=== PATIENT | female | born 1990 | race Caucasian/White ===

== ENCOUNTER → 2020-10-10 | Outpatient (CLI) | payer OTHER, SELFPAY ==
[2020-10-21 15:44] LABS: HPV Reflexed? NOT INDICATED
== END | disposition home or self-care (01) ==
LOC: LABSPEC 15:15
PROVIDERS: Visit Provider Student in an Organized Health Care Education/Training Program
DX: Z12.4 Encounter for screening for malignant neoplasm of cervix (principal)
CPT/HCPCS: 88175; G0145

== ENCOUNTER → 2021-11-30 | Outpatient (CLI) | payer OTHER, SELFPAY ==
[2021-12-04 13:20] LABS: HPV Reflexed? NOT INDICATED
== END | disposition home or self-care (01) ==
LOC: LABSPEC 12:21
PROVIDERS: Visit Provider Student in an Organized Health Care Education/Training Program
DX: Z12.4 Encounter for screening for malignant neoplasm of cervix (principal)
CPT/HCPCS: 88175; G0145

== ENCOUNTER → 2022-02-22 | Outpatient (CLI) | payer OTHER, SELFPAY ==
--- NOTE | 2022-02-22 11:55 | BI_ITS ---
MAMMOGRAPHY - BILATERAL SCREENING REASON FOR EXAM: Female, 32 years old. Routine annual screening examination. PERTINENT HISTORY: Aunt with breast cancer. TECHNIQUE: Digital bilateral breast yanick (3D mammographic acquisition) in the CC and MLO projections. 2-D mediolateral oblique (MLO) and craniocaudad (CC) views of both breasts were obtained. CAD: Full Field Digital Mammography with Computer Added Detection was performed. COMPARISON: None. Baseline examination. FINDINGS: Breast Composition: The breasts are extremely dense, which lowers the sensitivity of mammography. There are no dominant masses or suspicious calcifications. No other significant abnormalities are identified. BI/SCRN MAMM (CAD)W/YANICK BILAT IMPRESSION: Negative screening mammogram. Yearly followup mammogram recommended. (A) ASSESSMENT CATEGORY: BIRADS Category 1: Negative. A letter regarding these results will be sent to the patient by the facility within 30 days. Approximately 10% of breast cancers are not detected by mammography. A normal mammogram should not delay biopsy of a clinically suspicious abnormality. [id number] Electronically Signed: Albert Stone MD at 13:06 EST ,
== END | disposition home or self-care (01) ==
LOC: OPBI 11:52
PROVIDERS: PCP Nurse Practitioner Family; Visit Provider Student in an Organized Health Care Education/Training Program
DX: Z12.31 Encounter for screening mammogram for malignant neoplasm of breast (principal); Z80.3 Family history of malignant neoplasm of breast
CPT/HCPCS: 77063; 77067

== ENCOUNTER → 2023-07-05 | Outpatient (CLI) | payer OTHER, SELFPAY ==
[2023-07-07 08:12] LABS: Chlamydia By Nucleic Acid AMP Negative (Negative); Gonococcus By Nucleic Acid AMP Negative (Negative)
== END | disposition home or self-care (01) ==
LOC: LABSPEC 12:03
PROVIDERS: PCP Nurse Practitioner Family; Referring Provider Obstetrics & Gynecology; Visit Provider Obstetrics & Gynecology
DX: Z34.90 Encounter for supervision of normal pregnancy, unspecified, unspecified trimester (principal); Z3A.00 Weeks of gestation of pregnancy not specified
CPT/HCPCS: 87086; 87491; 87591

== ENCOUNTER → 2023-07-19 | Outpatient (CLI) | payer OTHER, SELFPAY ==
[2023-07-19 14:28] LABS: Absolute Lymphocyte Count 2.51 X10^3/uL (0.83-4.51); Absolute Neutrophil Count 4.8 X10^3/uL (2.0-7.7); Basophil# 0.05 X10^3/uL; Basophil% 0.6 % (0-1); Eosinophil# 0.31 X10^3/uL; Eosinophils% 3.7 % (0-5); Hematocrit 39.5 % (37-47); Hemoglobin 13.4 g/dL (12.0-15.0); Lymphocyte # 2.51 X10^3/ul (0.83-4.51); Lymphocyte % 30.1 % (19-41); Mean Corp Hgb Conc 33.9 g/dL (32-36); Mean Corpuscular Hgb 30.1 pg (27.0-32.0); Mean Corpuscular Volume 88.8 fL (81-99); Mean Platelet Vol. 12.2 fl (6.2-12.0); Monocyte# 0.69 X10^3/uL; Monocyte% 8.3 % (0-10); NRBC Flagged by Analyzer 0 % (0-5); Neutrophil # 4.75 X10^3/uL (2.7-7.7); Neutrophil % 57.1 % (47-70); Platelet Count 209 K/mm3 (150-450); RBC Distribution Width CV 12.5 % (11.6-14.6); RBC Distribution Width SD 40.9 fl (35.1-43.9); Red Blood Count 4.45 M/mm3 (4.2-5.4); White Blood Count 8.3 K/mm3 (4.4-11.0)
[2023-07-19 15:44] LABS: HIV - WCH Non-Reactive (Nonreactive); Hepatitis B Surface Antigen Non-Reactive (Nonreactive); Hepatitis C Antibody Non-Reactive (Nonreactive); Rubella IgG Reactive (Nonreactive); Syphilis Antibodies Non-reactive
== END | disposition home or self-care (01) ==
LOC: PAVLAB 14:00
PROVIDERS: PCP Nurse Practitioner Family; Referring Provider Obstetrics & Gynecology; Visit Provider Obstetrics & Gynecology
DX: Z34.81 Encounter for supervision of other normal pregnancy, first trimester (principal); Z3A.00 Weeks of gestation of pregnancy not specified
CPT/HCPCS: 36415; 85025; 86703; 86762; 86780; 86803; 86850; 86900; 86901; 87340

== ENCOUNTER → 2023-11-23 | Outpatient (CLI) | payer OTHER, SELFPAY ==
[2023-11-23 11:06] LABS: Absolute Lymphocyte Count 1.78 X10^3/uL (0.83-4.51); Absolute Neutrophil Count 8.8 X10^3/uL (2.0-7.7); Basophil# 0.03 X10^3/uL; Basophil% 0.3 % (0-1); Eosinophil# 0.29 X10^3/uL; Eosinophils% 2.5 % (0-5); Hematocrit 37.3 % (37-47); Hemoglobin 12.6 g/dL (12.0-15.0); Lymphocyte # 1.78 X10^3/ul (0.83-4.51); Lymphocyte % 15.2 % (19-41); Mean Corp Hgb Conc 33.8 g/dL (32-36); Mean Corpuscular Volume 91.9 fL (81-99); Mean Platelet Vol. 12.4 fl (6.2-12.0); Monocyte# 0.75 X10^3/uL; Monocyte% 6.4 % (0-10); NRBC Flagged by Analyzer 0 % (0-5); Neutrophil # 8.75 X10^3/uL (2.7-7.7); Neutrophil % 74.7 % (47-70); Platelet Count 178 K/mm3 (150-450); RBC Distribution Width CV 13.2 % (11.6-14.6); RBC Distribution Width SD 44.5 fl (35.1-43.9); Red Blood Count 4.06 M/mm3 (4.2-5.4); White Blood Count 11.7 K/mm3 (4.4-11.0)
[2023-11-23 11:09] LABS: Glucose Challenge Gest 1H 50g 104 mg/dL (70-140)
[2023-11-23 15:52] LABS: HIV - WCH Non-Reactive (Nonreactive); Syphilis Antibodies Non-reactive
== END | disposition home or self-care (01) ==
PROVIDERS: PCP Nurse Practitioner Family; Referring Provider Obstetrics & Gynecology; Visit Provider Obstetrics & Gynecology
DX: Z34.00 Encounter for supervision of normal first pregnancy, unspecified trimester (principal); Z13.1 Encounter for screening for diabetes mellitus
CPT/HCPCS: 36415; 82950; 85025; 86703; 86780

== ENCOUNTER → 2024-01-02 | Outpatient (CLI) | payer OTHER, SELFPAY ==
--- NOTE | 2024-01-02 15:29 | US_ITS ---
STUDY: SECOND AND THIRD TRIMESTER OBSTETRICAL ULTRASOUND REASON FOR EXAM: Female, 33 years old large for gestational age TECHNIQUE: Transabdominal PRIOR ULTRASOUND: 07/05/2023 FINDINGS: There is a single intrauterine fetus. The fetus is in a cephalic presentation. There is demonstrated cardiac activity with a heart rate of 137 bpm. There is a normal amniotic fluid volume. The largest amniotic fluid pocket measures 6.7 cm. The amniotic fluid index (HECTOR) is 14.8 cm. The placenta is posterior and not low-lying. There are Grade 1 placental changes. The cervix measures 4.1 cm in length. The bilateral adnexal regions are normal. BPD: 9 cm = 36 weeks, 3 day(s) HC: 32.3 cm = 36 weeks, 4 day(s) AC: 29.2 cm = 33 weeks, 2 day(s) FL: 6.4 cm = 32 weeks, 6 day(s) EGA by ultrasound: 34 weeks 5 day(s) FELICIANO by ultrasound: 02/08/2024 Estimated weight: 2263 grams Weight percentile: 32 % US/OB Limited With Biometrics IMPRESSION: Living intrauterine with estimated gestational age of 34 weeks and 5 days. EFW is 2263g which is in the 32nd percentile. Normal HECTOR. No obvious anomalies. Electronically Signed: Jayson Chang MD at 23:47 EDT ,
== END | disposition home or self-care (01) ==
LOC: US 15:25
PROVIDERS: Referring Provider Obstetrics & Gynecology; Visit Provider Obstetrics & Gynecology
DX: O36.60X0 Maternal care for excessive fetal growth, unspecified trimester, not applicable or unspecified (principal)
CPT/HCPCS: 76816

== ENCOUNTER → 2024-01-20 | Outpatient (CLI) | payer OTHER, SELFPAY | END | disposition home or self-care (01) | LOC: LABSPEC 13:20 | PROVIDERS: Referring Provider Advanced Practice Midwife; Visit Provider Advanced Practice Midwife | DX: Z34.00 Encounter for supervision of normal first pregnancy, unspecified trimester (principal); Z3A.00 Weeks of gestation of pregnancy not specified | CPT/HCPCS: 87081 ==

== ENCOUNTER 2024-02-03 14:45 | Outpatient (CLI) | payer OTHER, SELFPAY ==
[2024-02-03 15:17] VITALS: PULSE 74; RESP 16; TEMP 36.3; O2SAT 97
[2024-02-03 15:18] VITALS: BP 140/82; PULSE 78
[2024-02-03 15:20] VITALS: BMI 30.1
[2024-02-03 15:33] VITALS: BP 141/82; PULSE 80
[2024-02-03 15:38] LABS: Hemoglobin 13.5 g/dL (12.0-15.0); Mean Corp Hgb Conc 35.5 g/dL (32-36); Mean Corpuscular Hgb 31.9 pg (27.0-32.0); Mean Corpuscular Volume 89.8 fL (81-99); Mean Platelet Vol. 12.6 fl (6.2-12.0); Platelet Count 157 K/mm3 (150-450); RBC Distribution Width SD 42.5 fl (35.1-43.9); Red Blood Count 4.23 M/mm3 (4.2-5.4); White Blood Count 11.8 K/mm3 (4.4-11.0)
[2024-02-03 15:48] VITALS: BP 138/77; PULSE 77
[2024-02-03 15:53] LABS: ALB/GLOB Ratio 0.8 RATIO (0.9-2.4); AST(SGOT) 19 U/L (15-37); Alanine Aminotransfer ALT/SGPT 21 U/L (13-56); Alkaline Phosphatase 110 U/L (45-117); Anion Gap 8 (5-15); BUN 13 mg/dL (7-18); BUN/Creat Ratio 16.5 RATIO (10-20); Calcium,Total 9.1 mg/dL (8.5-10.1); Chloride 111 mmol/L (98-107); Creatinine, Serum 0.79 mg/dL (0.55-1.02); EST Glomerular Filtration Rate 90 mL/min (>60); Est Glom Filt Rate - Afr Amer 109 mL/min (>60); Estimated Creatinine Clearance 109.26 ml/min; Globulin 3.6 g/dL (2.2-4.2); Glucose 91 mg/dL (74-106); Potassium 3.6 mmol/L (3.5-5.1); Protein, Total 6.6 g/dL (6.4-8.2); Sodium Level 140 mmol/L (136-145)
[2024-02-03 15:54] LABS: Protein, Urine (Random) < 6.0 mg/dL (<11.9)
[2024-02-03 16:02] VITALS: BP 137/81; PULSE 78
--- NOTE | 2024-02-04 08:23 | OB.TRI.HP_ITS ---
HPI - General General Date of Service: 02/03/24 HPI Narrative SELMA CRONIN, is a 33 F who presents at 38.3 with elevated BP in office. no headaches, visual changes or RUQ pain. presents for PEC labs work up. Maternal Data Information FELICIANO Calculator Estimated Delivery Date Method Current WG Current Estimate 02/14/24 LMP (Certain) 38w 4d Other Estimates 02/11/24 Ultrasound #1 39w 0d PFSH PFSH Home Medications ?Medication ?Instructions ?Recorded ?Last Taken ?Type multivitamin no.47-iron fum 27 1 cap PO DAILY 07/01/23 02/02/24 21:00 History mg-folate no.1 1 mg-dha 300 mg 1 cap capsule (PNV-DHA) Allergy/AdvReac Type Severity Reaction Status Date / Time No Known Allergies Allergy Verified 02/03/24 15:19 Family History Mother Stillbirth Aunt Breast cancer Maternal Surgical History [place] teeth extracted History of tonsillectomy and adenoidectomy Social History adopted: No household members: spouse current occupational status: employed current occupation: teacher current occupational exposures/hazards: No pets and animals: Yes pets and animals: dog(s) and farm animals history of recent travel: Yes (April) out of state: Yes out of country: No sexually active: Yes Smoking Status: Never smoker alcohol intake: current details: Not while substance use type: does not use well-balanced diet: daily or most days caffeine: Yes Type: coffee Number of servings: 1 eating out: rarely or never during the past year weight has: remained stable what type of physical activity do you participate in: weight training and other details: HIIT frequency: 5-6 times per week duration: 30-45 minutes/day maricel/buddhism: Restorationist seatbelt use: always do you feel safe at home: Yes additional social history: [employer] History 1 Elective abortions Hx Para 0 Spontaneous abortions Hx # Term Pregnancies Ectopic pregnancies Hx # Pregnancies Multiple births # of living children Visit Details Expected Delivery Route/Plan Labor Preferences- CB/BF classes: [] labor support person: [] labor intervention preferences: [] pain management options preferred: [] cut cord/dad catch: [] : [] PP control planned: [] discussed possible routes of delivery and associated risks: [] special requests: [] Plans Covid status: [] Flu vaccine: [] Tdap vaccine: given Rhogam: na LARC form signed: declined movement and labor precautions reviewed. Problem list reviewed and updated with the most current plan of care details and appropriate orders placed. Relevant counseling for the gestational age provided. Continue routine care and follow up unless otherwise noted in visit notes/problem list details OB Flowsheet Initial Weight: 161 lb Date -?-?-?-?-?-?-?-?-?-?-?-?- EGA Weight BP Urine Prot -?-?-?-?-?-?-?-?-?-?-?-?- Glucose FHR FuHt Pres Dilation -?-?--?-?-?-?-?-?-?-?-?-?- Effaced St Visit Note 07/05/23 -?-?-?-?-?-?-?-?-?-?-?-?- 8w 0d 161 lb 6 oz (+6 oz) 145/85 -?-?-?-?-?-?-?-?-?-?-?-?- 160 -?-?-?-?-?-?-?-?-?-?-?-?- JV- pt very anxi ous today. desires NIPT. CRL consistent with LMP. 08/05/23 -?-?-?-?-?-?-?-?-?-?-?-?- 12w 3d 160 lb 4 oz (-12 oz) 122/78 Negative -?-?-?-?-?-?-?-?-?-?-?-?- Negative 160 -?-?-?-?-?-?-?-?-?-?-?-?- LC- no vb/crampi ng. anatomy scan ordered. LC- no vb/cramping. anatomy scan ordered. declines afp. 09/01/23 -?-?-?-?-?-?-?-?-?-?-?-?- 16w 2d 163 lb 4 oz (+2 lb 4 oz) 124/80 Negative -?-?-?-?-?-?-?-?-?-?-?-?- Negative 158 -?-?-?-?-?-?-?-?-?-?-?-?- KW- no vb/crampi ng. possible flutters 09/30/23 -?-?-?-?-?-?-?-?-?-?-?-?- 20w 3d 166 lb 2 oz (+5 lb 2 oz) 132/70 Negative -?-?-?-?-?--?-?-?-?-?-?-?- Negative 150 -?-?-?-?-?-?-?-?-?-?-?-?- KW-viewed anatom y US on pts phone and normal. good fm. no vb/cramping 10/24/23 -?-?-?-?-?-?-?-?--?-?-?-?- 23w 6d 170 lb (+9 lb) 147/82 -?-?-?-?-?-?-?-?-?-?-?-?- 151 24 -?-?-?-?-?-?-?-?-?-?-?-?- JV- no lof, vagi nal bleeding, or cramping. + fm. 11/23/23 -?-?-?-?-?-?-?-?-?-?-?-?- 28w 1d 173 lb (+12 lb) 118/77 Negative -?-?-?-?-?-?-?-?-?-?-?-?- Negative 135 28 -?-?-?-?-?-?-?-?-?-?-?-?- SM- no vb lof go od fm no regular ctx 12/09/23 -?-?-?-?-?-?-?-?-?-?-?-?- 30w 3d 175 lb (+14 lb) 133/86 Negative -?-?-?-?-?-?-?-?-?-?-?-?- Negative 140 33 -?-?-?-?-?-?-?-?-?-?-?-?- SM- no vb lof go od fm n regular ctx discussed growth us if FH continues to be higher 12/23/23 -?-?-?-?-?-?-?-?-?-?-?-?- 32w 3d 173 lb (+12 lb) 137/80 Negative -?-?-?-?-?-?-?-?-?-?-?-?- Negative 145 34 -?-?-?-?-?-?-?-?-?-?-?-?- JV- signed larc. JV- signed larc. She is tear ful today about fear of stillbirth. Her mom had a 37 week still when she was 14. She would like a growth scan. measuring slightly large anyway. ultrasound ordered and patient reassured. 01/06/24 -?-?-?-?-?-?-?-?-?-?-?-?- 34w 3d 174 lb 8 oz (+13 lb 8 oz) 128/76 Negative -?-?-?-?-?-?-?-?-?-?-?-?- Negative 147 34 -?-?-?-?-?-?-?-?-?-?-?-?- JV- no lof, vagi nal bleeding, or dec fm. pt states that she feels better after talking last visit. 01/20/24 -?-?-?-?-?-?-?-?-?-?-?-?- 36w 3d 178 lb (+17 lb) 113/75 Negative -?-?-?-?-?-?-?-?-?-?-?-?- Negative 150 37 Cephalic -?-?-?-?-?-?-?-?-?-?-?-?- KW- no vb/lof/ct x. good fm. GBS today. 01/27/24 -?-?--?-?-?-?-?-?-?-?-?-?- 37w 3d 181 lb 2 oz (+20 lb 2 oz) 138/84 Negative -?-?-?-?-?-?-?-?-?-?-?-?- Negative 166 38 Cephalic -?-?--?-?-?-?-?-?-?-?-?-?- JV- gbs neg. No complaints today. declines pelvic exam. 02/03/24 -?-?-?-?-?-?-?-?-?-?-?-?- 38w 3d 180 lb 6 oz (+19 lb 6 oz) 142/87 Negative -?-?-?-?-?-?-?-?-?-?-?-?- Negative 140 38 Cephalic 1 -?-?-?-?-?-?-?-?-?-?-?-?- SM- no vb lof go od fm n oregular ctx SM- no vb lof good fm no reg ular ctx SM- no vb lof good fm no reg ular ctx to l and d for evaluation NST FHR Rate Baby A Baseline: 130 Variability:: Moderate Accelerations:: 15 x 15 Decelerations:: None NST Reactive:: Yes FHR Category:: Category I Uterine Activity:: irregular Assessment & Plan (1) Elevated BP without diagnosis of hypertension: COMMENT: PEC labs negative. monitor BP at home with precautions to contact office if >140/90. PLAN: Patient presents for triage evaluation secondary to elevated BP in office. stable bp in WP with declining BPs to 130s/80s. PEC labs negative. no proteinuria or s/sx of PEC. FHT: Moderate variability reactive no decelerations category I tracing [place]: irregular Contractions Assessment and plan: Reactive NST, reassuring maternal and status patient discharged to home to follow-up in office if BP increase at home. See problem list details for additional plan information. Charges/Coding Procedures Urinary/Genital 52xxx-59xxx: 25524-60 non-stress test Interp
--- NOTE | 2024-02-04 08:23 | OB.TRI.NOTE ---
HPI - General General Date of Service: 02/03/24 HPI Narrative SELMA CRONIN, is a 33 F who presents at 38.3 with elevated BP in office. no headaches, visual changes or RUQ pain. presents for PEC labs work up. Maternal Data Information FELICIANO Calculator Estimated Delivery Date Method Current WG Current Estimate 02/14/24 LMP (Certain) 38w 4d Other Estimates 02/11/24 Ultrasound #1 39w 0d PFSH PFSH Home Medications ?Medication ?Instructions ?Recorded ?Last Taken ?Type multivitamin no.47-iron fum 27 1 cap PO DAILY 07/01/23 02/02/24 21:00 History mg-folate no.1 1 mg-dha 300 mg 1 cap capsule (PNV-DHA) Allergy/AdvReac Type Severity Reaction Status Date / Time No Known Allergies Allergy Verified 02/03/24 15:19 Family History Mother Stillbirth Aunt Breast cancer Maternal Surgical History [place] teeth extracted History of tonsillectomy and adenoidectomy Social History adopted: No household members: spouse current occupational status: employed current occupation: teacher current occupational exposures/hazards: No pets and animals: Yes pets and animals: dog(s) and farm animals history of recent travel: Yes (April) out of state: Yes out of country: No sexually active: Yes Smoking Status: Never smoker alcohol intake: current details: Not while substance use type: does not use well-balanced diet: daily or most days caffeine: Yes Type: coffee Number of servings: 1 eating out: rarely or never during the past year weight has: remained stable what type of physical activity do you participate in: weight training and other details: HIIT frequency: 5-6 times per week duration: 30-45 minutes/day maricel/pentecostalism: Sikh seatbelt use: always do you feel safe at home: Yes additional social history: [employer] History 1 Elective abortions Hx Para 0 Spontaneous abortions Hx # Term Pregnancies Ectopic pregnancies Hx # Pregnancies Multiple births # of living children Visit Details Expected Delivery Route/Plan Labor Preferences- CB/BF classes: [] labor support person: [] labor intervention preferences: [] pain management options preferred: [] cut cord/dad catch: [] : [] PP control planned: [] discussed possible routes of delivery and associated risks: [] special requests: [] Plans Covid status: [] Flu vaccine: [] Tdap vaccine: given Rhogam: na LARC form signed: declined movement and labor precautions reviewed. Problem list reviewed and updated with the most current plan of care details and appropriate orders placed. Relevant counseling for the gestational age provided. Continue routine care and follow up unless otherwise noted in visit notes/problem list details OB Flowsheet Initial Weight: 161 lb Date <del>?</del> EGA Weight BP Urine Prot <del>?</del> Glucose FHR FuHt Pres Dilation <del>?</del> Effaced St Visit Note 07/05/23 <del>?</del> 8w 0d 161 lb 6 oz (+6 oz) 145/85 <del>?</del> 160 <del>?</del> JV- pt very anxious today. desires NIPT. CRL consistent with LMP. 08/05/23 <del>?</del> 12w 3d 160 lb 4 oz (-12 oz) 122/78 Negative <del>?</del> Negative 160 <del>?</del> LC- no vb/cramping. anatomy scan ordered. LC- no vb/cramping. anatomy scan ordered. declines afp. 09/01/23 <del>?</del> 16w 2d 163 lb 4 oz (+2 lb 4 oz) 124/80 Negative <del>?</del> Negative 158 <del>?</del> KW- no vb/cramping. possible flutters 09/30/23 <del>?</del> 20w 3d 166 lb 2 oz (+5 lb 2 oz) 132/70 Negative <del>?</del> Negative 150 <del>?</del> KW-viewed anatomy US on pts phone and normal. good fm. no vb/cramping 10/24/23 <del>?</del> 23w 6d 170 lb (+9 lb) 147/82 <del>?</del> 151 24 <del>?</del> JV- no lof, vaginal bleeding, or cramping. + fm. 11/23/23 <del>?</del> 28w 1d 173 lb (+12 lb) 118/77 Negative <del>?</del> Negative 135 28 <del>?</del> SM- no vb lof good fm no regular ctx 12/09/23 <del>?</del> 30w 3d 175 lb (+14 lb) 133/86 Negative <del>?</del> Negative 140 33 <del>?</del> SM- no vb lof good fm n regular ctx discussed growth us if FH continues to be higher 12/23/23 <del>?</del> 32w 3d 173 lb (+12 lb) 137/80 Negative <del>?</del> Negative 145 34 <del>?</del> JV- signed larc. JV- signed larc. She is tearful today about fear of stillbirth. Her mom had a 37 week still when she was 12. She would like a growth scan. measuring slightly large anyway. ultrasound ordered and patient reassured. 01/06/24 <del>?</del> 34w 3d 174 lb 8 oz (+13 lb 8 oz) 128/76 Negative <del>?</del> Negative 147 34 <del>?</del> JV- no lof, vaginal bleeding, or dec fm. pt states that she feels better after talking last visit. 01/20/24 <del>?</del> 36w 3d 178 lb (+17 lb) 113/75 Negative <del>?</del> Negative 150 37 Cephalic <del>?</del> KW- no vb/lof/ctx. good fm. GBS today. 01/27/24 <del>?</del> 37w 3d 181 lb 2 oz (+20 lb 2 oz) 138/84 Negative <del>?</del> Negative 166 38 Cephalic <del>?</del> JV- gbs neg. No complaints today. declines pelvic exam. 02/03/24 <del>?</del> 38w 3d 180 lb 6 oz (+19 lb 6 oz) 142/87 Negative <del>?</del> Negative 140 38 Cephalic 1 <del>?</del> SM- no vb lof good fm n oregular ctx SM- no vb lof good fm no regular ctx SM- no vb lof good fm no regular ctx to l and d for evaluation NST FHR Rate Baby A Baseline: 130 Variability:: Moderate Accelerations:: 15 x 15 Decelerations:: None NST Reactive:: Yes FHR Category:: Category I Uterine Activity:: irregular Assessment & Plan (1) Elevated BP without diagnosis of hypertension: COMMENT: PEC labs negative. monitor BP at home with precautions to contact office if >140/90. PLAN: Patient presents for triage evaluation secondary to elevated BP in office. stable bp in WP with declining BPs to 130s/80s. PEC labs negative. no proteinuria or s/sx of PEC. FHT: Moderate variability reactive no decelerations category I tracing [place]: irregular Contractions Assessment and plan: Reactive NST, reassuring maternal and status patient discharged to home to follow-up in office if BP increase at home. See problem list details for additional plan information. Charges/Coding Procedures Urinary/Genital 52xxx-59xxx: 19029-16 non-stress test Interp
== END 2024-02-03 16:25 | disposition home or self-care (01) ==
LOC: WPOUT 14:47 → WP 14:47
PROVIDERS: Obstetrics & Gynecology; Referring Provider Registered Nurse; Visit Provider Registered Nurse
DX: O26.893 Other specified pregnancy related conditions, third trimester (principal); R03.0 Elevated blood-pressure reading, without diagnosis of hypertension; Z3A.38 38 weeks gestation of pregnancy
CPT/HCPCS: 36415; 59025; 59050; 80053; 82570; 84156; 85027; 99221; G0378

== ENCOUNTER 2024-02-07 06:20 | Outpatient (CLI) | payer OTHER, SELFPAY ==
[2024-02-07 06:36] VITALS: BMI 30.2
--- OUTSIDE RECORDS SUMMARY | 2024-02-07 06:36 | XMS RPT_ITS | CCD ---
Author Organization [facility] Care Team Providers Care Pulmonologist/Intensivist Name Role Phone Unavailable Primary Care Provider UnavailNILA Lind Attending Unavailable SELF, SELF Referring Unavailable NILA PEREZ Attending Unavailable SELF, SELF Referring Unavailable NO PRIMARY CARE, Primary Care Unavailable JAIRO ORR Referring Unavailable KIRILL GARCIA Attending Unavailable Medications Current Medications Medication Drug Class(es) Dates Sig (Normalized) Sig (Original) Desogestrel / Ethinyl Estradiol (3 sources) Progestin, Estrogen Start: 07-01-2018 desogestrel-ethi nyl estradiol 0.15-0.02/0.01 MG (05/09) Tab tablet oseltamivir 75 mg oral capsule (1 source) Neuraminidase Inhibitor Start: 06-04-2019 End: 06-09-2019 take 1 capsule by mouth twice daily oseltamivir 75 MG capsule Indications: Influenza A Take 1 capsule by mouth 2 times daily for 5 days. 10 capsule 0 06/04/2019 06/09/2019 Active sulfamethoxazole 800 mg / trimethoprim 160 mg oral tablet (1 source) Dihydrofolate Reductase Inhibitor Antibacterial, Sulfonamide Antimicrobial Start: 07-15-2018 End: 07-22-2018 take 1 tablet by mouth twice daily sulfamethoxazole -trimethoprim 800-160 MG Tab per tablet Take 1 tablet by mouth 2 times daily for 7 days. 14 tablet 0 07/15/2018 07/22/2018 Active Completed/Discontinued Medications Medication Drug Class(es) Dates Sig (Normalized) Sig (Original) cephalexin 500 mg oral capsule (2 sources) Cephalosporin Antibacterial Start: 07-13-2018 End: 07-20-2018 take 1 capsule by mouth three times daily cephALEXin 500 MG Cap capsule Take 1 capsule by mouth 3 times daily for 7 days. 21 capsule 0 07/13/2018 07/15/2018 Discontinued Problems Problem Classification Problem Date Documented Da te Episodic/Chronic Genitourinary symptoms and ill-defined conditions (1 source) Dysuria; Translations: [Dysuria] Episodic Influenza (1 source) Influenza due to Influenza A virus; Translations: [Influenza A] Episodic Urinary tract infections (2 sources) Urinary tract infectious disease; Translations: [UTI symptoms] Episodic Results Test Name Value Interpretation Reference Range Facil ity CORONAVIRUS 2019 BY PCRon CORONAVIRUS 2019,PCR NOT DETECTED Normal Not Detected [facility] Comment on above: Result Comment: . This assay is designed to detect the N, ORF1ab and/or S genes of SARS-CoV-2 via nucleic acid amplification. A Negative (NOT DETECTED) result does not preclude 2019-nCoV infection since the adequacy of sample collection and/or low viral burden may result in presence of viral nucleic acids below the clinical sensitivity of this test method. Negative (NOT DETECTED) result should not be used as the sole basis for treatment or other patient management decisions. Rather negative results should be combined with clinical observations, patient history, and epidemiological information to make patient management decisions. Fact sheet for providers: https://www.fda.gov/media/699356/download Fact sheet for patients: https://www.fda.gov/media/857559/download This test has received FDA Emergency Use Authorization (EUA) and has been verified by [facility] ([facility]). This test is only authorized for the duration of time that circumstances exist to justify the authorization of the emergency use of in vitro diagnostic tests for the detection of SARS-CoV-2 virus and/or diagnosis of COVID-19 infection under section 564(b)(1) of the Act, 21 U.S.C. 360bbb-3(b)(1), unless the authorization is terminated or revoked sooner. [facility] is certified under CLIA-88 as qualified to perform high complexity testing. Testing is performed in the [facility] laboratories located at [address] [place] [address]. Performed By: #### C OV19 #### [address] [place] [address] CORONAVIRUS 2019 BY PCRon DATE OF SYMPTOM ONSET [[id number]]? [id number] Normal [facility] Comment on above: Performed By: #### C OV19 #### [facility] [address] [place] [address] EMPLOYED IN HEALTHCARE? No [facility] Comment on above: Performed By: #### C OV19 #### [facility] [address] [place] [address] FIRST COVID NASAL SWAB TEST? Yes [facility] Comment on above: Performed By: #### C OV19 #### [facility] [address] [place] [address] HOSPITALIZED (OR PLANNED TO BE ADMITTED)? Yes [facility] Comment on above: Performed By: #### C OV19 #### [facility] [address] [place] [address] ICU? No [facility] Comment on above: Performed By: #### C OV19 #### [facility] [address] [place] [address] ? No [facility] Comment on above: Performed By: #### C OV19 #### [facility] [address] [place] [address] RESIDENT IN CONGREGATE CARE SETTING? No [facility] Comment on above: Performed By: #### C OV19 #### [facility] [address] [place] [address] SYMPTOMATIC DEFINED BY [facility]? Yes [facility] Comment on above: Performed By: #### C OV19 #### [facility] [address] [place] [address] Lab Specimen Source Nasal, Nasopharyngeal [facility] Comment on above: Performed By: #### C OV19 #### [facility] [address] [place] [id number] Provider Note - ED v2on 02-17 Provider Note - ED v2 Provider Note - ED v2: Chart Review ED NOTES ED NOTES: Patient came in with complaints of head congestion and headache. Patient says she does have a cough. Patient says her has been sick for the last week but did test negative for coronavirus. Patient denies any fever blurred vision nausea vomiting shortness of breath chest pain constipation diarrhea. HISTORY OF PRESENTING ILLNESS SELMA is a 30 year old Female and was seen by me at 10-Mar-2020 09:08. The historian is the patient. Triage Information: Most recent Vital Sign Value Date PAST MEDICAL HISTORY ATTESTATION: I have reviewed and confirmed nurse's/medic's notes for patient's medications, allergies, medical history, and surgical history PSYCHOSOCIAL SCREENING: NO: concerns for safety at home, feelings of depression, feels like hurting others and feels like hurting self ALLERGIES/INTOLERANCE S: No Known Allergies HEALTH HISTORY: No documented data. OUTPATIENT MEDICATIONS: Home Medications Review Status for Reconciliation: Complete Med Status: No Current Medications SIGNIFICANT EVENTS: No documented data. SEAFOOD HARVESTER: Is : no Is : no REVIEW OF SYSTEMS ENMT Nose: POSITIVE for: congestion RESPIRATORY: POSITIVE for: cough NEUROLOGICAL: POSITIVE for: headache; All other systems reviewed and are negative RESULTS/VITAL SIGNS VITAL SIGNS: T PRBP SpO2O2(LPM) %FiO2 Method 10-Mar-2020 09:19:[id number]/ 81 100 PHYSICAL EXAM CONSTITUTIONAL: Well appearing, well nourished, awake, alert, oriented to person, place, time/situation and in no apparent distress. HENMT: Airway patent, ears with clear tympanic membranes bilaterally. Nasal mucosa clear. Mouth with normal mucosa. Throat has no vesicles, no oropharyngeal exudates and uvula is midline. Face with no lymph node enlargement. Positive for sinus pressure in frontal maxillary sinuses. EYES: pupils are accommodating CARDIOVASCULAR: Normal rate, regular rhythm. RESPIRATORY: Breath sounds clear and equal bilaterally and unlabored. no Rales rhonchi or crackles. GASTROINTESTINAL: Abdomen soft, non-distended, no rebound, no guarding. Bowel sounds normal in all 4 quadrants. GENITOURINARY: No discharge, no lesions. MUSCULOSKELETAL: range of motion is not limited, no muscle or joint tenderness. NEUROLOGICAL: Alert and oriented, no focal deficits, no motor or sensory deficits. SKIN: Skin normal color for race, warm, dry and intact. No evidence of trauma. PSYCHIATRIC: Alert and oriented to person, place, time/situation. normal mood and affect. No apparent risk to self or others. HEME/LYMPH: No cervical adenopathy. CLINICAL IMPRESSION Diagnosis/Annotation: ED Dx Name:Cough Code:R05 Disposition: discharged Type: home ATTESTATION Comments/Additional Findings: Patient was tested for Covid. Patient was sent home to self quarantine. Patient was educated about self quarantining. Patient will be called in the morning with the lab results from the Covid swab. CRITICAL CARE TIME Is this a critically ill patient: no Electronic Signatures for Addendum Section: Destiny Amezcua (NIKKIE-WALDEMAR) (Signed Addendum 11-Mar-2020 08:11) Left message for patient to return call about negative Covid results. No personal information was left on the voicemail. Electronic Signatures: Destiny Amezcua (DRYWALL STRIPPER HELPER-WALDEMAR) (Signed 11-Mar-2020 08:11) Authored: ED Notes, HPI, PMH, ROS, PE, Results/Vital Signs, Clinical Impression, Attestation, Chart Review, Scores Last Updated: 11-Mar-2020 08:11 by Destiny Amezcua (DRYWALL STRIPPER HELPER[facility]) [facility] PROGRESSon 06-18-2019 PROGRESS HNO ID: [id number] Author: Lara Yates) Donaldo Service: ? Author Type: FINGER LIFT OPERATOR Type: Progress Notes Filed: 06/18/2019 3:47 PM Note Text: ASSESSMENT/PLAN: 1. Chronic viral conjunctivitis of both eyes - ICD9: 077.99, ICD10: B30.8 Recommended the use of preservative free artificial tears four times per day to maintain good vision and comfort. Discussed contacting the office if there is a change in comfort or vision. Return as needed. Lara Fulton, OD I have confirmed and edited as necessary the relevant ophthalmic history, ROS, and the neuro exam findings as obtained by others. I have seen and examined this patient. I have discussed the case and the management of this patient's care with the Resident/Fellow, if applicable. I also have reviewed and agree with the assessment and plan as stated above and agree with all of its relevant components. Normal [facility] POCT INFLUENZA, A Bon 2019 FLUAV Ag IA Ql (Nph) Positive [facility] FLUBV Ag IA Ql (Nph) Negative [facility] qc done [facility] PROGRESSon 04-26-2019 PROGRESS HNO ID: [id number] Author: Eric Yates) Donaldo SNOW Service: ? Author Type: FINGER LIFT OPERATOR Type: Progress Notes Filed: 04/26/2019 8:23 AM Note Text: Assessment and Plan H10.9 Bacterial conjunctivitis of both eyes (primary encounter diagnosis) Comment: Recommend use of TobraDex 1 gt both eyes four times a day X 1 week. Recheck as needed. Instruct patient to immediately report any change in condition outside of expected and discussed symptoms. I have confirmed and edited as necessary the relevant ophthalmic history, ROS, and the neuro exam findings as obtained by others. I have seen and examined Selma Spaulding. I have discussed the case and the management of this patient's care with the Resident/Fellow, if applicable. I also have reviewed and agree with the assessment and plan as stated above and agree with all of its relevant components. Eric Fulton, II, OD Normal [facility] URINE CULTUREon 07-15-2018 Bacteria identified Cx Nom (U) SPECIMEN DESCRIPTION URINE CLEAN CATCH UA DIPSTICK LEUKOCYTE POSITIVE * Result Note: NITRITE NEGATIVE * CULTURE SERRATIA MARCESCENS * Result Note: 30,000-40,000 C/C/ML * * Result Note: Testing performed at [place] [address] * REPORT STATUS 07/15/2018 * Result Note: FINAL * ORGANISM SERRATIA MARCESCENS * Result Note: SERRATIA MARCESCENS * METHOD PARIS CEFTRIAXONE <=1 SUSCEPTIBLE CEFAZOLIN >=64 RESISTANT GENTAMICIN <=1 SUSCEPTIBLE TRIMETH-SULFA <=20 SUSCEPTIBLE AMOXICILLIN/CLAVULANI C A RESISTANT NITROFURANTOIN 128 RESISTANT LEVOFLOXACIN <=0.12 SUSCEPTIBLE CEFTAZIDIME <=1 SUSCEPTIBLE Normal [facility] Comment on above: Performed By: #### A UROK #### [place] [address] POCT URINALYSIS DIPSTICK AUT OMATED W/O SCOPon 07-13-2018 Amorphous sediment LM Ql (Urine sed) [facility] Appe[facility] Nom (Body fld) slightly cloudy [facility] [employer]stock Bacteria LM Ql (Urine sed) [facility] Bilirubin Ql (U) Negative [facility] ALTH Casts LM.LPF #/area (Urine sed) [facility] Color Nom (U) yellow [facility] LM Nom (Urine sed) [facility] Epithelial cells.squamous LM.HPF #/area (Urine sed) [facility] Flow cytometry specialist review Interp Rohan (Unsp spec) [facility] Ketones mass conc Negative mg/dL [facility] Leukocyte esterase Qn (U) [facility] Leukocyte esterase Test strip Ql (U) moderate [facility] Nitrite Ql (U) Negative [facility] pH (U) 5.5 [pH] [facility] POCT GLUCOSE, URINE Negative mg/dL [facility] Protein Ql (U) 100 mg/dL [facility] RBC LM.HPF #/area (Urine sed) [facility] RBC Ql (U) large [facility] Specific gravity Relative Density (U) 1.010 [facility] Transitional cells LM Ql (Urine sed) [facility] Urobilinogen mass conc (U) 0.2 [facility] WBC LM.HPF #/area (Urine sed) [facility] POCT URINE PREGNANCYon 07-13 HCG.beta subunit Qn Negative [facility] Vital Signs Date Time Vital Sign Value Performing Clinician Faci litvicky 06-04-2019 08:24-0500 BP Diastolic 93 mm[Hg] [facility] 06-04-2019 08:24-0500 BP Systolic 139 mm[Hg] [facility] 06-04-2019 08:23-0500 BMI (Body Mass Index) 23.96 kg/m2 [facility] 06-04-2019 08:23-0500 Body Temperature 99.81 [degF] [facility] 06-04-2019 08:23-0500 Body weight 65.32 kg [facility] 06-04-2019 08:23-0500 Height 165.1 cm [facility] 06-04-2019 08:23-0500 Pulse (Heart Rate) 104 /min [facility] 06-04-2019 08:23-0500 Pulse Oximetry 98 % [facility] 06-04-2019 08:23-0500 Respiratory Rate 16 /min [facility] 07-13-2018 13:57-0400 BMI (Body Mass Index) 23.63 kg/m2 [facility] 07-13-2018 13:57-0400 Body Temperature 97.59 [degF] [facility] 07-13-2018 13:57-0400 BP Diastolic 90 mm[Hg] [facility] 07-13-2018 13:57-0400 BP Systolic 131 mm[Hg] [facility] 07-13-2018 13:57-0400 Height 167.6 cm [facility] 07-13-2018 13:57-0400 Pulse (Heart Rate) 87 /min [facility] 07-13-2018 13:57-0400 Pulse Oximetry 97 % [facility] 07-13-2018 13:57-0400 Respiratory Rate 16 /min [facility] 07-13-2018 13:57-0400 Weight 66.41 kg [facility] Encounters Encounter Date Encounter Type Care Provider Facility Start: 09-22-2023 End: 09-22-2023 ambulatory MD NO PRIMARY CARE [facility] Start: 06-04-2019 End: 06-04-2019 Office outpatient visit 25 minutes Carmita Sanders Work Phone: [facility] Comment on above: Influenza A (Primary Dx) Start: 07-15-2018 End: 07-15-2018 Patient encounter procedure Carmita Sanders Work Phone: [facility] Comment on above: Urinary tract infect ion without hematuria, site unspecified (Primary Dx) Start: 07-13-2018 Patient encounter procedure NILA PEREZ [facility] Start: 07-13-2018 End: 07-13-2018 Letter encounter Provider Sean [facility] Start: 07-13-2018 End: 07-13-2018 Office outpatient new 30 minutes Nila Perez Work Phone: [facility] Comment on above: UTI symptoms (Primar y Dx); Dysuria Procedures Date Procedure Procedure Detail Performing Clinician Start: 06-04-2019 Iaadiadoo jayashree Garciabetina Sanders Work Phone: Start: 07-13-2018 Urnls dip stick/tablet rgnt auto w/o microscopy Nila Perez Work Phone: Start: 07-13-2018 Choriogonadotropin ( test) [Presence] in Urine Nila Perez Work Phone: Plan of Treatment Date Care Activity Detail Author Start: 12-17-2018 Influenza vaccination INFLUENZA VACC INE (#1) [facility] Start: 07-13-2018 End: 07-14-2019 Bacteria identified Cx Nom (U) URINE CULTURE Microbiology Routine UTI symptoms Expected: 07/13/2018, Expires: 07/14/2019 [facility] Comment on above: Expected: 07/13/2018 , Expires: 07/14/2019 Start: 12-17-2017 Influenza vaccination INFLUENZA VACC INE (#1) [facility] Start: 02-20-2013 Screening for malign ant neoplasm of cervix [facility] Start: 02-20-2011 Third diphtheria, te tanus and acellular pertussis (DTaP) vaccination TDAP (ADULT) [facility] Start: 02-20-2010 Tetanus vaccination TETANUS [facility] Start: 2008 Screening for Chlamy hector trachomatis CHLAMYDIA SCREEN [facility] Start: 02-20-2007 Vaccination for durga n papillomavirus HPV VACCINE ADOL (1 - Female 3-dose series) [facility] Start: 02-20-2005 HIV screening HIV SCREENING DISCUSSI ON [facility] Start: 1992 GONORRHEA SCREEN GONORRHEA SCREEN [facility] Payers Date Payer Category Payer Unknown [employer] [place] xxxxxxxxxxxx 2018-Present xxxxxxxxxxxx [id number] 2018 Unknown [id number] 1992 Unknown [id number] 1992 Unknown [id number] 1992 Unknown [id number] Social History Date Type Detail Facility Start: 07-13-2018 End: 06-04-2019 Tobacco smoking status SCIS Never smoker [facility] Start: 07-13-2018 Alcohol Comment [facility] Sex Assigned At Not on file [facility] Start: 06-04-2019 Alcohol intake Current drinke r of alcohol (finding) [facility] Reason for Referral Status Reason Specialty Diagnoses / Procedures Referred By Contact Referred To Contact New Request Family Medicine Diagnoses UTI symptoms Dysuria Nila Perez PA [address] [place] [address] Instructions * Patient Instructions* Nila Perez PA - 07/13/2018 1:55 PM EDT Drink plenty of fluids Return here or nearest ER for uncontrolled fever, vomiting, difficulty breathing or difficulty swallowing. Drink plenty of fluids Return here or nearest ER for uncontrolled fever, vomiting, difficulty breathing or difficulty swallowing. Dysuria Painful urination (dysuria) is often caused by a problem in the urinary tract. Dysuria is pain felt during urination. It is often described as a burning. Learn more about this problem and how it can be treated. What causes dysuria? Possible causes include: Infection with a bacteria or virus such as a urinary tract infection (UTI or a sexually transmittedinfection (STI) Sensitivity or allergy to chemicals such as those found in lotions and other products Prostate or bladder problems Radiation therapy to the pelvic area How is dysuria diagnosed? Your healthcare provider will examine you. He or she will ask about your symptoms and health. Aftertalking with you and doing a physical exam, your healthcare provider may know what is causing your dysuria. He or she will usually request a sample of your urine. Tests of your urine, or a urinalysis, are done. A urinalysis may include: Looking at the urine sample (visual exam) Checking for substances (chemical exam) Looking at a small amount under a microscope (microscopic exam) Some parts of the urinalysis may be done in the provider's office and some in a lab. And, the urinesample may be checked for bacteria and yeast (urine culture). Your healthcare provider will tell you more about these tests if they are needed. How is dysuria treated? Treatment depends on the cause. If you have a bacterial infection, you may need antibiotics. You may be given medicines to make it easier for you to urinate and help relieve pain. Your healthcare provider can tell you more about your treatment options. Untreated, symptoms may get worse. When to call your healthcare provider Call the healthcare provider right away if you have any of the following: Fever of 100.4 F (38 C) or higher No improvement after three days of treatment Trouble urinating because of pain New or increased discharge from the vagina or penis Rash or joint pain Increased back or abdominal pain Enlarged painful lymph nodes (lumps) in the groin Date Last Reviewed: 04/18/[id number] [employer]. [address] [place] [address]. All rights reserved. This information is not intended as a substitute for professional medical care. Always follow yourhealthcare professional's instructions. Dysuria Painful urination (dysuria) is often caused by a problem in the urinary tract. Dysuria is pain felt during urination. It is often described as a burning. Learn more about this problem and how it can be treated. What causes dysuria? Possible causes include: Infection with a bacteria or virus such as a urinary tract infection (UTI or a sexually transmittedinfection (STI) Sensitivity or allergy to chemicals such as those found in lotions and other products Prostate or bladder problems Radiation therapy to the pelvic area How is dysuria diagnosed? Your healthcare provider will examine you. He or she will ask about your symptoms and health. Aftertalking with you and doing a physical exam, your healthcare provider may know what is causing your dysuria. He or she will usually request a sample of your urine. Tests of your urine, or a urinalysis, are done. A urinalysis may include: Looking at the urine sample (visual exam) Checking for substances (chemical exam) Looking at a small amount under a microscope (microscopic exam) Some parts of the urinalysis may be done in the provider's office and some in a lab. And, the urinesample may be checked for bacteria and yeast (urine culture). Your healthcare provider will tell you more about these tests if they are needed. How is dysuria treated? Treatment depends on the cause. If you have a bacterial infection, you may need antibiotics. You may be given medicines to make it easier for you to urinate and help relieve pain. Your healthcare provider can tell you more about your treatment options. Untreated, symptoms may get worse. When to call your healthcare provider Call the healthcare provider right away if you have any of the following: Fever of 100.4 F (38 C) or higher No improvement after three days of treatment Trouble urinating because of pain New or increased discharge from the vagina or penis Rash or joint pain Increased back or abdominal pain Enlarged painful lymph nodes (lumps) in the groin Date Last Reviewed: 04/18/[id number] [employer]. [address] [place] [address]. All rights reserved. This information is not intended as a substitute for professional medical care. Always follow yourhealthcare professional's instructions. documented in this encounter* Patient Instructions* Carmita Sanders PA-Jaiden - 06/04/2019 8:15 AM EST Influenza (Flu): Care Instructions Your Care Instructions Influenza (flu) is an infection in the lungs and breathing passages. It is caused by the influenza virus. There are different strains, or types, of the flu virus from year to year. Unlike the common cold, the flu comes on suddenly and the symptoms, such as a cough, congestion, fever, chills, fatigue, aches, and pains, are more severe. These symptoms may last up to 10 days. Although the flu can make you feel very sick, it usually doesn't cause serious health problems. Home treatment is usually all you need for flu symptoms. But your doctor may prescribe antiviral medicine to prevent other health problems, such as pneumonia, from developing. Older people and those who have a long-term health condition, such as lung disease, are most at risk for having pneumonia or other health problems. Follow-up care is a olivo part of your treatment and safety. Be sure to make and go to all appointments, and call your doctor if you are having problems. It's also a good idea to know your test resultsand keep a list of the medicines you take. How can you care for yourself at home? Get plenty of rest. Drink plenty of fluids, enough so that your urine is light yellow or clear like water. If you have kidney, heart, or liver disease and have to limit fluids, talk with your doctor before you increase the amount of fluids you drink. Take an ptdu-ory-jrwzosh pain medicine if needed, such as acetaminophen (Tylenol), ibuprofen (Advil, Motrin), or naproxen (Aleve), to relieve fever, headache, and muscle aches. Read and follow all instructions on the label. No one younger than 20 should take aspirin. It has been linked to Cesar syndrome, a serious illness. Do not smoke. Smoking can make the flu worse. If you need help quitting, talk to your doctor about stop-smoking programs and medicines. These can increase your chances of quitting for good. Breathe moist air from a hot shower or from a sink filled with hot water to help clear a stuffy nose. Before you use cough and cold medicines, check the label. These medicines may not be safe for youngchildren or for people with certain health problems. If the skin around your nose and lips becomes sore, put some petroleum jelly on the area. To ease coughing: ? Drink fluids to soothe a scratchy throat. ? Suck on cough drops or plain hard candy. ? Take an nkyl-faz-eonzqeh cough medicine that contains dextromethorphan to help you get some sleep. Read and follow all instructions on the label. ? Raise your head at night with an extra pillow. This may help you rest if coughing keeps you awake. Take any prescribed medicine exactly as directed. Call your doctor if you think you are having a problem with your medicine. To avoid spreading the flu Wash your hands regularly, and keep your hands away from your face. Stay home from school, work, and other public places until you are feeling better and your fever has been gone for at least 24 hours. The fever needs to have gone away on its own without the help of medicine. Ask people living with you to talk to their doctors about preventing the flu. They may get antiviral medicine to keep from getting the flu from you. To prevent the flu in the future, get a flu vaccine every fall. Encourage people living with you toget the vaccine. Cover your mouth when you cough or sneeze. When should you call for help? Call anytime you think you may need emergency care. For example, call if: You have severe trouble breathing. Call your doctor now or seek immediate medical care if: You have new or worse trouble breathing. You seem to be getting much sicker. You feel very sleepy or confused. You have a new or higher fever. You get a new rash. Watch closely for changes in your health, and be sure to contact your doctor if: You begin to get better and then get worse. You are not getting better after 1 week. Where can you learn more? Go to http://[email or web address].u.edu/patiented. Enter L652 in the search box to learn more about 'Influenza (Flu): Care Instructions.' Interested in seeing a video go to [email or web address]/videolibrary to see all video content. Current as of: September 24, 2018 Content Version: 12.3 2751-8694 [employer]. Care instructions adapted under license by your healthcare professional. If you have questions about a medical condition or this instruction, always ask your healthcare professional. [employer] disclaims any warranty or liability for your use of this information. documented in this encounter History of Present Illness * Nila Perez PA - 07/13/2018 1:55 PM EDT Emergency Department Report [facility] Service Date:.07/13/18 PCP: No primary care provider on file. Chief Complaint: Chief Complaint Patient presents with Bladder Infection STATES BURNING WHEN URINATING; STARTED THIS MORNING AND HAS HAD THEM BEFORE HPI Selma Spaulding is a 28 y.o. female presents to the ED today due to dysuria beginning this AM. No fever, chills or flank pain. No nausea or vomiting or gross hematuria. No pre-office tretment. Review of Systems: Review of Systems Constitutional: Negative for activity change, chills and fever. HENT: Negative for congestion and sore throat. Respiratory: Negative for cough and shortness of breath. Cardiovascular: Negative for chest pain and leg swelling. Gastrointestinal: Negative for abdominal pain. Genitourinary: Positive for dysuria. Negative for flank pain and hematuria. Musculoskeletal: Negative for arthralgias. Skin: Negative for color change. Past Medical History: No past medical history on file. Past Surgical History: Past Surgical History: Procedure Laterality Date TONSILLECTOMY WISDOM TEETH EXTRACTION Allergies: No Known Allergies Medications: Patient's Medications New Prescriptions No medications on file Previous Medications DESOGESTREL-ETHINYL ESTRADIOL 0.15-0.02/0.01 MG (05/09) TAB TABLET Modified Medications No medications on file Discontinued Medications No medications on file Family History: Family History Problem Relation Age of Onset No known problems Mother No known problems Father Social History: Social History Socioeconomic History Marital status: Spouse name: Not on file Number of children: Not on file Years of education: Not on file Highest education level: Not on file Occupational History Not on file Social Needs Financial resource strain: Not on file Food insecurity: Worry: Not on file Inability: Not on file Transportation needs: Medical: Not on file Non-medical: Not on file Tobacco Use Smoking status: Never Smoker Smokeless tobacco: Never Used Substance and Sexual Activity Alcohol use: Yes Comment: SOCIALLY Drug use: Never Sexual activity: Yes Lifestyle Physical activity: Days per week: Not on file Minutes per session: Not on file Stress: Not on file Relationships Social connections: Talks on phone: Not on file Gets together: Not on file Attends oriental orthodox service: Not on file Active member of club or organization: Not on file Attends meetings of clubs or organizations: Not on file Relationship status: Not on file Intimate partner violence: Fear of current or ex partner: Not on file Emotionally abused: Not on file Physically abused: Not on file Forced sexual activity: Not on file Other Topics Concern Service Not Asked Blood Transfusions Not Asked Caffeine Concern Not Asked Occupational Exposure Not Asked Hobby Hazards Not Asked Sleep Concern Not Asked Stress Concern Not Asked Weight Concern Not Asked Special Diet Not Asked Back Care Not Asked Exercise Not Asked Bike Helmet Not Asked Seat Belt Not Asked Domestic Violence No Social History Narrative Not on file PMH, Surghx,Socialhx,FH and nurses notes and Medications, Allergies and VS reviewed. Vital Signs During ED Visit Reviewed in the nurses triage notes. Physical Exam: Vitals: 07/13/18 1357 BP: 131/90 Pulse: 87 Resp: 16 Temp: 97.6 F (36.4 C) Physical Exam Constitutional: She is oriented to person, place, and time and well-developed, well-nourished, and in no distress. No distress. HENT: Head: Normocephalic and atraumatic. Right Ear: External ear normal. Left Ear: External ear normal. Mouth/Throat: Oropharynx is clear and moist. Eyes: Pupils are equal, round, and reactive to light. Conjunctivae and EOM are normal. Neck: Normal range of motion. Neck supple. Cardiovascular: Normal rate, regular rhythm, normal heart sounds and intact distal pulses. No murmur heard. Pulmonary/Chest: Effort normal. No respiratory distress. Abdominal: Soft. Bowel sounds are normal. She exhibits no distension. There is no tenderness. No CVA tenderness Musculoskeletal: Normal range of motion. She exhibits no edema, tenderness or deformity. Lymphadenopathy: She has no cervical adenopathy. Neurological: She is alert and oriented to person, place, and time. GCS score is 15. Skin: Skin is warm and dry. No erythema. Psychiatric: Mood, memory, affect and judgment normal. Nursing note and vitals reviewed. Orders/Results: Orders Placed This Encounter URINE CULTURE POCT URINALYSIS DIPSTICK AUTOMATED W/O SCOP POCT URINE desogestrel-ethinyl estradiol 0.15-0.02/0.01 MG (05/09) Tab tablet Results for orders placed or performed in visit on 07/13/18 POCT URINE Result Value Ref Range POCT URINE negative Radiographic Imaging No orders to display Procedures: Procedures Diff Dx: MDM: U/A suggestive of UTI Assessment/Clinical Impression: Dysuria Plan: Drink plenty of fluids Return here or nearest ER for uncontrolled fever, vomiting, difficulty breathing or difficulty swallowing. 1. UTI symptoms 2. Dysuria No follow-ups on file. New Prescriptions No medications on file Discontinued Medications No medications on file An After Visit Summary was printed and given to the patient with above information. . documented in this encounter* Carmita Sanders PA-C - 06/04/2019 8:15 AM EST SUBJECTIVE: Patient presents complaining of flu-like symptoms: fevers, chills, myalgias, congestion, sore throat and cough for 2 days. Denies dyspnea or wheezing. ROS Constitutional: Reports Fever, chills, fatigue Eyes: Denies visual change or eye discharge Head/Ear/Nose/Throat: Denies earache,sinus congestion. Reports runny nose, intermittent sore throat Respiratory: Denies shortness of breath Cardiovascular: Denies chest pain Gastrointestinal: Denies abdominal pain, Denies nausea, Denies vomiting, Denies diarrhea Musculoskeletal: Denies Joint pain Lymphatic: Denies enlarged lymph nodes Neurological: Denies focal neuro symptoms. Reports headache Social History Tobacco Use Smoking status: Never Smoker Smokeless tobacco: Never Used Substance Use Topics Alcohol use: Yes Comment: SOCIALLY Drug use: Never Family History Problem Relation Age of Onset No known problems Mother No known problems Father No past medical history on file. Past Surgical History: Procedure Laterality Date TONSILLECTOMY WISDOM TEETH EXTRACTION EXAM Blood pressure (!) 139/93, pulse 104, temperature 99.8 F (37.7 C), temperature source Oral, resp. rate 16, height 1.651 m (5' 5 ), weight 65.3 kg (144 lb), last menstrual period 06/01/2019, SpO2 98 %, not currently . Primary Assessment: Airway patent. Respirations unlabored Appears moderately ill but not toxic Constitutional: Vital signs reviewed. No distress Psychiatric: Mental status appropriate. Normal affect Skin: Warm and dry. No rashes noted Eyes: Conjunctiva clear. No photophobia HENT: Normocephalic. Ears - Left tympanic membrane and canal clear, Right tympanic membrane and canal clear. Posterior pharynx clear. Lymphatics: no anterior cervical lymphadenopathy, no posterior cervical lymphadenopathy Cardio: regular rate and rhythm. No murmurs, rubs, or gallop Thorax/ Respiratory: Respiratory effort non-labored, lungs clear to ascultation Musculoskeletal: Neck supple Neurologic: Alert and Oriented Rapid flu test positive for influenza A. ASSESSMENT/PLAN: Tylenol or Motrin as needed for pain/fever. Symptomatic therapy suggested: rest, increase fluids. Follow up with PCP if no improvement in 4-5 days or with worsening of symptoms. Self isolation discussed until fever free for 24 hours. Carmita Sanders MS,[facility] documented in this encounter Assessments Diagnosis UTI symptoms- Primary Dysuria Diagnosis Urinary tract infection without hematuria, site unspecified- Primary Diagnosis Influenza A Influenza with other respiratory manifestations Summary Purpose Family History No Family History Records FoundNo Family History Records FoundNo Family History Records FoundNo Family History Records FoundNo Family History Records Found Advance Directives No Advanced Directives Records FoundNo Advanced Directives Records FoundNo Advanced Directives Records FoundNo Advanced Directives Records FoundNo Advanced Directives Records Found Additional Source Comments Reason for Visit (unrecogniz ed section and content) Reason Comments Bladder Infection STATES BURNING WHEN URINATING; STARTED THIS MORNING AND HAS HAD THEM BEFORE Reason Comments Sinus Congestion c/o fever, body ache s, cough and sinus/chest congestion onset last pm. States took advil at 715 am today. INFORMATION SOURCE (unrecogn ized section and content) DATE CREATED AUTHOR 07/17/2018 [facility] DATE CREATED AUTHOR AUTHOR'S ORGANIZ ATION 07/17/2018 [facility] DATE CREATED AUTHOR AUTHOR'S ORGANIZ ATION 06/18/2019 [facility] DATE CREATED AUTHOR AUTHOR'S ORGANIZ ATION 03/12/2020 [facility] DATE CREATED AUTHOR AUTHOR'S ORGANIZ ATION 09/23/2023 [facility] FOR RECORDS PERTAINING TO PATIENTS WHO ARE OR HAVE BEEN ENROLLED IN A CHEMICAL DEPENDENCY/SUBSTANCEABUSE PROGRAM, SOME INFORMATION MAY BE OMITTED. This clinical summary was aggregated from multiple sources. Caution should be exercised in using it in the provision of clinical care. This summary normalizes information from multiple sources, and as a consequence, information in this document may materially change the coding, format and clinical context of patient data. In addition, data may be omitted in some cases. CLINICAL DECISIONS SHOULD BE BASED ON THE PRIMARY CLINICAL RECORDS. [employer] provides no warranty or guarantee of the accuracy or completeness of information in this document.
[2024-02-07 06:39] VITALS: BP 140/91; PULSE 88; RESP 14; TEMP 36.5
[2024-02-07 06:41] VITALS: PULSE 88; O2SAT 99
[2024-02-07 07:15] LABS: ROM Internal Control Test YES-OK TO RESULT pt. (Internal QC); ROM Patient Test Negative (Negative)
[2024-02-07 07:27] VITALS: BP 135/80; PULSE 78
[2024-02-07 08:14] VITALS: BP 124/71; PULSE 83
--- NOTE | 2024-02-07 08:16 | OB.TRI.PN ---
Progress Notes Date of Service: 02/07/24 Progress Note: Patient presents for triage evaluation secondary to vaginal discharge FHT: 130 Moderate variability reactive no decelerations category I tracing [place]: mild Contractions Assessment and plan: rom plus negative, no cervical change. Reactive NST, reassuring maternal and status patient discharged to home to follow-up in office at next scheduled appt. See problem list details for additional plan information. Laboratory Studies: Laboratory Tests 02/07/24 Range/Units 06:45 Vag Amniotic Fld Detect Negative (Negative) Charges/Coding Multi Select Codes Visit Charges Office Visit/Consults: 64408 OV L3 Est 20min Urinary/Genital Urinary/Genital CPT Codes: 10117-82 non-stress test Interp Assessment & Plan (1) Vaginal discharge during : COMMENT: rom plus negative. d/c home (2) Elevated BP without diagnosis of hypertension: COMMENT: PEC labs negative. monitor BP at home with precautions to contact office if >140/90. (3) Large for gestational age fetus affecting management of mother: (4) Supervision of normal first : COMMENT: PRR, , FELICIANO 02/14/24, girl Jose Andrews (5) : QUALIFIERS: Weeks of gestation: 38 weeks Qualified Code(s): Z3A.38 - 38 weeks gestation of COMMENT: GBS neg, normal anatomy, discussed genetic & carrier testing NIPT low risk
== END 2024-02-07 08:25 | disposition home or self-care (01) ==
LOC: WPOUT 06:33 → WP 06:34
PROVIDERS: Referring Provider Obstetrics & Gynecology; Visit Provider Obstetrics & Gynecology
DX: O99.891 Other specified diseases and conditions complicating pregnancy (principal); N89.8 Other specified noninflammatory disorders of vagina; Z3A.38 38 weeks gestation of pregnancy; R03.0 Elevated blood-pressure reading, without diagnosis of hypertension; O36.63X0 Maternal care for excessive fetal growth, third trimester, not applicable or unspecified
CPT/HCPCS: 59025; 59050; 84112; 99221; G0378

== ENCOUNTER 2024-02-19 12:10 | Outpatient (CLI) | payer OTHER, SELFPAY ==
[2024-02-19 12:26] VITALS: PULSE 80; RESP 14; TEMP 36.3; O2SAT 100
[2024-02-19 12:30] VITALS: BMI 29.9
[2024-02-19 12:34] VITALS: BP 144/89; PULSE 81
[2024-02-19 12:44] VITALS: BP 132/83; PULSE 76
[2024-02-19 12:56] VITALS: BP 131/80; PULSE 73
--- NOTE | 2024-02-19 13:38 | OB.TRI.PN ---
Progress Notes Date of Service: 02/19/24 Progress Note: Patient presents for triage evaluation secondary to contractions and spotting at 40.5 weeks FHT: 130 Moderate variability reactive no decelerations category I tracing [place]: occasional mild Contractions Assessment and plan: cervical exam unchanged, Reactive NST, reassuring maternal and status patient discharged to home to follow-up tomorrow evening for IOL. See problem list details for additional plan information. Charges/Coding Multi Select Codes Visit Charges Office Visit/Consults: 83307 OV L3 Est 20min Urinary/Genital Urinary/Genital CPT Codes: 62504-36 non-stress test Interp Assessment & Plan (1) Supervision of normal first : COMMENT: PRR, , FELICIANO 02/14/24, girl Jose Andrews (2) : QUALIFIERS: Weeks of gestation: 40 weeks Qualified Code(s): Z3A.40 - 40 weeks gestation of COMMENT: GBS neg, normal anatomy, discussed genetic & carrier testing NIPT low risk (3) Irregular contractions: COMMENT: unchanged cervical exam
== END 2024-02-19 13:15 | disposition home or self-care (01) ==
LOC: WPOUT 12:17 → WP 12:18
PROVIDERS: Visit Provider Advanced Practice Midwife
DX: O47.1 False labor at or after 37 completed weeks of gestation (principal); O26.853 Spotting complicating pregnancy, third trimester; Z3A.40 40 weeks gestation of pregnancy
CPT/HCPCS: 59025; 59050; 99221; G0378

== ENCOUNTER 2024-02-21 17:10 | Inpatient (IN) | payer OTHER, SELFPAY ==
[2024-02-21] VITALS (15 sets, daily range): BP systolic 105–144; BP diastolic 64–83; PULSE 60–80; RESP 13–22; TEMP 36.2–37.3; O2SAT 94–100; BMI 30.1
--- NOTE | 2024-02-21 12:15 | HP.PCM.OB_ITS ---
HPI - General General Date of Admission: 02/21/24 Date of Service: 02/21/24 HPI Narrative SELMA CRONIN, is a 34 F 41.0 weeks who presents to unit from the office after nonreassuring NST. Variables and periods of marked variability. Maternal Data Information FELICIANO Calculator Estimated Delivery Date Method Current WG Current Estimate 02/14/24 LMP (Certain) 41w 0d Other Estimates 02/11/24 Ultrasound #1 41w 3d Final FELICIANO: 02/14/24 Final FELICIANO Source: US >20 weeks Gestational age: 41.0 weeks PFSH PFSH Home Medications ?Medication ?Instructions ?Recorded ?Last Taken ?Type multivitamin no.47-iron fum 27 1 cap PO DAILY 07/01/23 02/06/24 History mg-folate no.1 1 mg-dha 300 mg capsule (PNV-DHA) Allergy/AdvReac Type Severity Reaction Status Date / Time No Known Allergies Allergy Verified 02/21/24 10:23 Family History Mother Stillbirth Aunt Breast cancer Maternal Surgical History [place] teeth extracted History of tonsillectomy and adenoidectomy Social History adopted: No household members: spouse current occupational status: employed current occupation: teacher current occupational exposures/hazards: No pets and animals: Yes pets and animals: dog(s) and farm animals history of recent travel: Yes (April) out of state: Yes out of country: No sexually active: Yes Smoking Status: Never smoker alcohol intake: current details: Not while substance use type: does not use well-balanced diet: daily or most days caffeine: Yes Type: coffee Number of servings: 1 eating out: rarely or never during the past year weight has: remained stable what type of physical activity do you participate in: weight training and other details: HIIT frequency: 5-6 times per week duration: 30-45 minutes/day maricel/lutheran: Mosque seatbelt use: always do you feel safe at home: Yes additional social history: [employer] History 1 Elective abortions Hx Para 0 Spontaneous abortions Hx # Term Pregnancies Ectopic pregnancies Hx # Pregnancies Multiple births # of living children Visit Details Expected Delivery Route/Plan Labor Preferences- CB/BF classes: [] labor support person: [] labor intervention preferences: [] pain management options preferred: [] cut cord/dad catch: [] : [] PP control planned: [] discussed possible routes of delivery and associated risks: [] special requests: [] Plans Covid status: [] Flu vaccine: [] Tdap vaccine: given Rhogam: na LARC form signed: declined movement and labor precautions reviewed. Problem list reviewed and updated with the most current plan of care details and appropriate orders placed. Relevant counseling for the gestational age provided. Continue routine care and follow up unless otherwise noted in visit notes/problem list details OB Flowsheet Initial Weight: 161 lb Date -?-?-?-?-?-?-?-?-?-?-?-?- EGA Weight BP Urine Prot -?-?-?-?-?-?-?-?-?-?-?-?- Glucose FHR FuHt Pres Dilation -?-?-?-?-?-?-?-?-?-?-?-?- Effaced St Visit Note 07/05/23 -?-?-?-?-?-?-?-?-?-?-?-?- 8w 0d 161 lb 6 oz (+6 oz) 145/85 -?-?-?-?-?-?-?-?-?-?-?-?- 160 -?-?-?-?-?-?-?-?-?-?-?-?- JV- pt very anxi ous today. desires NIPT. CRL consistent with LMP. 08/05/23 -?-?-?-?-?-?-?-?-?-?-?-?- 12w 3d 160 lb 4 oz (-12 oz) 122/78 Negative -?-?-?-?-?-?-?-?-?-?-?-?- Negative 160 -?-?-?-?-?-?-?-?-?-?-?-?- LC- no vb/crampi ng. anatomy scan ordered. LC- no vb/cramping. anatomy scan ordered. declines afp. 09/01/23 -?-?-?-?-?-?-?-?-?-?-?-?- 16w 2d 163 lb 4 oz (+2 lb 4 oz) 124/80 Negative -?-?-?-?-?-?-?-?-?-?-?-?- Negative 158 -?-?-?-?-?-?-?-?-?-?-?-?- KW- no vb/crampi ng. possible flutters 09/30/23 -?-?-?-?-?-?-?-?-?-?-?-?- 20w 3d 166 lb 2 oz (+5 lb 2 oz) 132/70 Negative -?-?-?-?-?-?-?-?-?-?-?-?- Negative 150 -?-?-?-?-?-?-?-?-?-?-?-?- KW-viewed anatom y US on pts phone and normal. good fm. no vb/cramping 10/24/23 -?-?-?-?-?-?-?-?-?-?-?-?- 23w 6d 170 lb (+9 lb) 147/82 -?-?-?-?-?-?-?-?-?-?-?-?- 151 24 -?-?-?-?-?-?-?-?-?-?-?-?- JV- no lof, vagi nal bleeding, or cramping. + fm. 11/23/23 -?-?-?-?-?-?-?-?-?-?-?-?- 28w 1d 173 lb (+12 lb) 118/77 Negative -?-?-?-?-?-?-?-?-?-?-?-?- Negative 135 28 -?-?-?-?-?-?-?-?-?-?-?-?- SM- no vb lof go od fm no regular ctx 12/09/23 -?-?-?-?-?-?-?-?-?-?-?-?- 30w 3d 175 lb (+14 lb) 133/86 Negative -?-?-?-?-?-?-?-?-?-?-?-?- Negative 140 33 -?-?-?-?-?-?-?-?-?-?-?-?- SM- no vb lof go od fm n regular ctx discussed growth us if FH continues to be higher 12/23/23 -?-?-?-?-?-?-?-?-?-?-?-?- 32w 3d 173 lb (+12 lb) 137/80 Negative -?-?-?-?-?-?-?-?-?-?-?-?- Negative 145 34 -?-?-?-?-?-?-?-?-?-?-?-?- JV- signed larc. JV- signed larc. She is tear ful today about fear of stillbirth. Her mom had a 37 week still when she was 14. She would like a growth scan. measuring slightly large anyway. ultrasound ordered and patient reassured. 01/06/24 -?-?-?-?-?-?-?-?-?-?-?-?- 34w 3d 174 lb 8 oz (+13 lb 8 oz) 128/76 Negative -?-?-?-?-?-?-?-?-?-?-?-?- Negative 147 34 -?-?-?-?-?-?-?-?-?-?-?-?- JV- no lof, vagi nal bleeding, or dec fm. pt states that she feels better after talking last visit. 01/20/24 -?-?-?-?-?-?-?-?-?-?-?-?- 36w 3d 178 lb (+17 lb) 113/75 Negative -?-?-?-?-?-?-?-?-?-?-?-?- Negative 150 37 Cephalic -?-?-?-?-?-?-?-?-?-?-?-?- KW- no vb/lof/ct x. good fm. GBS today. 01/27/24 -?-?-?-?-?-?-?-?-?-?-?-?- 37w 3d 181 lb 2 oz (+20 lb 2 oz) 138/84 Negative -?-?-?-?-?-?-?-?-?-?-?-?- Negative 166 38 Cephalic -?-?-?-?-?-?-?-?-?-?-?-?- JV- gbs neg. No complaints today. declines pelvic exam. 02/03/24 -?-?-?-?-?-?-?-?-?-?-?-?- 38w 3d 180 lb 6 oz (+19 lb 6 oz) 142/87 Negative -?-?-?-?-?-?-?-?-?-?-?-?- Negative 140 38 Cephalic 1 -?-?-?-?-?-?-?-?-?-?-?-?- SM- no vb lof go od fm n oregular ctx SM- no vb lof good fm no reg ular ctx SM- no vb lof good fm no reg ular ctx to l and d for evaluation 02/10/24 -?-?-?-?-?-?-?-?-?-?-?-?- 39w 3d 185 lb (+24 lb) 128/82 Negative -?-?-?-?-?-?-?-?-?-?-?-?- Negative 140 39 Cephalic 1 -?-?-?-?-?-?-?-?-?-?-?-?- SM- reviewed edenilson e bps and WNL, reviewed precautions, initial bp welevated but repeats WNL. 02/17/24 -?-?-?-?-?-?-?-?-?-?-?-?- 40w 3d 185 lb (+24 lb) 114/80 -?-?-?-?-?-?-?-?-?-?-?-?- 130 39 Cephalic 1 -?-?-?-?-?-?-?-?-?-?-?-?- KW- no vb/lof/re g ctx. good fm. IOL set up 02/21/24 -?-?-?-?-?-?-?-?-?-?-?-?- 41w 0d 182 lb (+21 lb) 123/77 Negative -?-?-?-?-?-?-?-?-?-?-?-?- Negative 120 -?-?-?-?-?-?-?-?-?-?-?-?- KW NST for 41.0 weeks. variables noted. to WP for IOL NST FHR Rate Baby A Baseline: 120 Variability:: Moderate Accelerations:: None Decelerations:: None NST Reactive:: Yes FHR Category:: Category I Uterine Activity:: 2-4 ROS Constitutional Constitutional: Denies change in weight, fatigue, fever(s), headache(s), poor appetite or weakness Eyes Eyes: Denies blurry vision, change in vision, floaters, seeing flashes or spots in vision ENT HEENT: Denies dizziness, headache(s), loss taste/smell or sore throat Cardiovascular Cardiovascular: Denies chest pain, dizziness, dyspnea, irregular heart rhythm, lightheadedness, palpitations or rapid heart rate Respiratory/Chest Respiratory/Chest: Denies change in mental status, chest tightness, cough, dyspnea or breast pain Gastrointestinal Gastrointestinal: Denies anorexia, chewing difficulty, constipation, diarrhea or weight changes Genitourinary Genitourinary: Denies difficulty urinating, dysuria, flank pain, genital pain, urinary frequency or urinary urgency Musculoskeletal Musculoskeletal: Denies back pain, difficulty walking, extremity pain, joint pain, muscle cramps or muscle weakness Integumentary Integumentary: Denies lesions or unusual bruising Neurologic Neurologic: Denies abnormal movements, abnormal speech, dizziness, numbness, seizure-like activity, syncope or weakness Psychiatric Psychiatric: Denies behavioral changes, change in appetite, confusion, depression, homicidal ideation, suicidal ideation or suicidal thoughts Endocrine Endocrinology: Denies excessive sweating, polydipsia or polyuria Hematologic/Lymphatic Hematologic/Lymphatic: Denies anemia Allergic/Immunologic Allergic/Immunologic: Denies itchy eyes, lip swelling, throat swelling, tongue swelling or wheezing Vital Signs Vital Signs Vital Signs: 02/21/24 11:24 02/21/24 11:24 Pulse Rate 78 Blood Pressure 130/74 H BP Systolic 130 BP Diastolic 74 Weight Weight: 186 lb Body Mass Index (BMI) 29.9 Physical Exam Const alert, oriented x3 and no apparent distress General Appearance: cooperative Orientation / Consciousness: awake HEENT normocephalic Neck full ROM Lymph Lymphatic: no lymphadenopathy noted Chest inspection of chest normal Resp normal respiratory effort and normal air movement Effort and Inspection: able to speak in complete sentences and symmetric chest movement GI soft to palpation and non-tender Inspection: gravid Palpation: soft; Negative for tender external exam normal Back/Spine normal to inspection Extremity normal to inspection and full ROM Skin no rashes or lesions noted Psych mental status grossly normal Appearance: grossly normal Speech: normal speech Labs Labs Labs: Blood Type A POSITIVE Antibody Screen NEGATIVE Hct 38.0 % (37-47) Hgb 13.5 g/dL (12.0-15.0) Obstetrics Ultrasound Syphilis Total Ab Non-reactive Rubella IgG Antibody Reactive (Nonreactive) Hep Bs Antigen Non-Reactive (Nonreactive) Hepatitis C Antibody Non-Reactive (Nonreactive) Chlamydia DNA (DANIEL) Negative (Negative) N.gonorrhoeae DNA (DANIEL) Negative (Negative) HIV 1&2 Antibody Non-Reactive (Nonreactive) Glucose 1 Hr 50 gm 104 mg/dL (70-140) Assessment & Plan (1) Encounter for induction of labor: PLAN: Patient presents IOL, plan management for with cytotec/quan bulb/ pitocin/AROM. Pain management: plans epidural. GBS negative. Management of any complications: none I have reviewed the [facility] and made any clinically relevant updates. Dr Edmond aware of assessment and admission. agrees with plan. (2) Antepartum variable deceleration: (3) Supervision of normal first : COMMENT: PRR, , FELICIANO 02/14/24, girl Jose Andrews (4) : QUALIFIERS: Weeks of gestation: 41 weeks Qualified Code(s): O48.0 - Post-term ; Z3A.41 - 41 weeks gestation of COMMENT: GBS neg, normal anatomy, discussed genetic & carrier testing NIPT low risk Charges/Coding Multi Select Codes Urinary/Genital Urinary/Genital CPT Codes: No Charge
[2024-02-21 17:46] LABS: Absolute Lymphocyte Count 2.42 X10^3/uL (0.83-4.51); Absolute Neutrophil Count 9.1 X10^3/uL (2.0-7.7); Basophil# 0.06 X10^3/uL; Basophil% 0.5 % (0-1); Eosinophil# 0.27 X10^3/uL; Eosinophils% 2.1 % (0-5); Hematocrit 40.9 % (37-47); Hemoglobin 14.1 g/dL (12.0-15.0); Lymphocyte # 2.42 X10^3/ul (0.83-4.51); Lymphocyte % 18.7 % (19-41); Mean Corp Hgb Conc 34.5 g/dL (32-36); Mean Corpuscular Hgb 31.7 pg (27.0-32.0); Mean Corpuscular Volume 91.9 fL (81-99); Mean Platelet Vol. 12.9 fl (6.2-12.0); Monocyte# 1.05 X10^3/uL; Monocyte% 8.1 % (0-10); NRBC Flagged by Analyzer 0 % (0-5); Neutrophil # 9.06 X10^3/uL (2.7-7.7); Neutrophil % 69.8 % (47-70); Platelet Count 153 K/mm3 (150-450); RBC Distribution Width CV 13.2 % (11.6-14.6); RBC Distribution Width SD 44.3 fl (35.1-43.9); Red Blood Count 4.45 M/mm3 (4.2-5.4)
[2024-02-21] MEDS: Acetaminophen 500 MG Tablet 1000 MG PO (18:16)
[2024-02-21] MEDS: Sodium Citrate/Citric Acid 30 ML UDC PO (18:16)
[2024-02-21] MEDS: Lactated Ringers 1,000 ML 999 ML IV (18:19)
[2024-02-21 18:34] LABS: Syphilis Antibodies Non-reactive
[2024-02-21] MEDS: Cefazolin 2 GM in Syringe IV (18:35)
--- NOTE | 2024-02-21 19:45 | OP.PCM_ITS ---
Assessment & Plan (1) LGA (large for gestational age) fetus: COMMENT: EFW 9 lbs 13 oz (2) Antepartum variable deceleration: (3) Encounter for induction of labor: (4) Irregular contractions: COMMENT: unchanged cervical exam (5) Supervision of normal first : COMMENT: PRR, , FELICIANO 02/14/24, girl Jose Andrews (6) : QUALIFIERS: Weeks of gestation: 41 weeks Qualified Code(s): O48.0 - Post-term ; Z3A.41 - 41 weeks gestation of COMMENT: GBS neg, normal anatomy, discussed genetic & carrier testing NIPT low risk Maternal Data Information FELICIANO Calculator Estimated Delivery Date Method Current WG Current Estimate 02/14/24 LMP (Certain) 41w 0d Other Estimates 02/11/24 Ultrasound #1 41w 3d Final FELICIANO: 02/14/24 Final FELICIANO Source: LMP Gestational age: 41 weeks 0 days Operative Report (OB) Cecarean Details Procedure Type: low transverse Surgeon: Sveta Blanton Date of Procedure: 02/21/24 Procedure Start Time: 18:55 Procedure Stop Time: 19:28 Pre-Operative Diagnosis: Other (34 y/o @41 weeks 0 days, variable decelerations, large for gestational age with estimated weight of 9 lbs 12 oz. ) Other Pre-Operative diagnosis: none Post-Operative Diagnosis: Same as Pre-operative diagnosis Classification: MUSHTAQ Type of Anesthesia: Spinal Antibiotic Given: Ancef 2 grams IV x1 Drain: Abrams to straight drain Estimated Blood Loss: 600cc Findings Description of surgery: The patient is a 34y/o @ 41 weeks 0 days presented for heart rate decelerations. She was noted to be measuring large and a growth scan was ordered in preparation for delivery. The estimated weight was 9lbs 13 oz. The patient was counseled on options for delivery along with risks and benefits of a trial of labor vs a section. She was counseled that ultrasound can be off by a pound in either direction. After a long discussion the patient decided that she wanted a . Spinal anesthesia was placed without difficulty. Abrams catheter was placed. The patient was placed in the dorsal supine position with leftward tilt. Patient was prepped and draped in the normal sterile fashion. Pfannenstiel skin incision was made with the scalpel and carried through to the underlying layer of fascia with the scalpel. Fascia was nicked in the midline and the incision extended laterally. The rectus bellies were dissected off superiorly and inferiorly with out complication both sharply and bluntly. The peritoneum was entered digitally. The incision was stretched and a low transverse uterine in cision was made with the scalpel. The 's head was delivered atraumatically followed by the anterior and posterior shoulders without complication the rest of the infant delivered. The cord was clamped and cut and the infant was handed off to awaiting nurse. The placenta was delivered spontaneously immediately following and was noted to be intact and have a three- vessel cord. The uterus was exteriorized cleared of all clots and debris, and the incision was closed in a double layer closure using #1vicryl and #1 Monocryl. The ovaries and fallopian tubes were noted to be within normal l imits. The uterus was returned to the maternal abdomen and gutters were cleared of all clots and debris. The peritoneum was closed with 3-0 Monocryl in a running fashion. Fascia was closed with 0 PDS in a running fashion. Subcutaneous tissue was copiously irrigated and the skin was closed with 3-0 Monocryl in a subcuticular fashion. Mepilex dressing was applied without complication. Patient was taken to recovery in stable condition. baby girl Jose 8 lbs 7 oz Surgical findings: normal uterus, tubes, ovaries, and placenta. Presentation: Vertex Amniotic Membrane Rupture Type: Artificial Amniotic Fluid Description: Clear Placental Delivery Description: Expressed Placenta Disposition: [facility] Specimen collected: No Cord Vessel Description: 3 Vessels Cord Entanglement: None A gender: Female (1 minute): 8 (5 minute): 9 Delayed Cord Clamping: No Facilities Director gut snatcher: Yes Rod Placer: Eri Lamas Tasks completed by first crusher: Hemostasis: Clamp, Hemostasis: Electrocautery, Retracting and Other (fundal pressure ) Additional administrative assistant office manager?: No Complications Complications: No Multi Select Codes Urinary/Genital Urinary/Genital CPT Codes: 49152 Delivery [facility]
[2024-02-21] MEDS: Oxytocin 15 Units/NS 250ml 15 UNITS/250 ML IV.SOLN 83 UNITS IV (19:50)
--- NOTE | 2024-02-21 19:54 | DCINST_ITS ---
Discharge Instructions Diet Discharge Diet: No restrictions Activity Discharge Activity: May Not Drive (for 2 weeks or while taking narcotic pain medications.), May Shower and May Take a Tub Bath (in 7 days.) May resume sexual activity in: 4-6 weeks Weight Bearing Status: Full weight bearing Lifting Restrictions: 20 pounds Dressing / Incision Call your doctor if your incision/area has: Continuous Slow Oozing, Sudden Increased Bleeding, Increased Pain/ Swelling, Increased Redness and Foul Smelling Discharge Call your doctor if you observe: Fever of 101 or Higher and Using more than 1 pad per hour Suture Line Care: Avoid Pulling/Pushing and Avoid Pinching/Bending Cleanse incision/area with: Soap & Water and Keep Dressing Clean & Dry Follow Up Care Please Follow Up With: Sveta Blanton DO When: Call [phone] to make an appointment for an incision check in 1-2 weeks. Test Results: Test results from this visit will be discussed in further detail at your follow- up appointment, if applicable. Discharge Plan Admission Admit Date/Time: 02/21/24 10:50 Primary Reason for Your Visit: Rule Out Labor Attending Provider: Sveta Blanton Primary Care Provider: Kelle Hylton Primary Instructions Patient Instructions: ED False Labor Discharge Orders/Prescriptions Prescriptions: New ibuprofen 800 mg tablet 800 mg PO Q8H PRN (Reason: pain) Qty: 30 0RF oxycodone-acetaminophen [Percocet] 5-325 mg tablet 1 tab PO Q4H PRN (Reason: pain) 7 Days Qty: 20 0RF Rx Instructions: 1-2 tabs q 4 hrs as needed for pain No Action PNV-DHA 27 mg iron-1 mg -300 mg capsule 1 cap PO DAILY Referrals / Follow Up: Care PhysicianKelle Primary [Primary Care Provider] - Disposition Disposition (needs filled in before D/C Order can be placed): Home, Self Care
[2024-02-21] MEDS: Ketorolac 30 MG/ML Syringe IV (20:31)
--- NOTE | 2024-02-21 21:09 | NURSING ---
per Arsenio note in connect, c/s scheduled at 1830 d/t patient eating lunch at 1230
[2024-02-22] VITALS (75 sets, daily range): BP systolic 121–143; BP diastolic 59–88; PULSE 54–99; RESP 14–18; TEMP 36.5–37; O2SAT 75–100
[2024-02-22] MEDS: Acetaminophen 500 MG Tablet 1000 MG PO ×4 (00:27→18:38)
[2024-02-22] MEDS: Ketorolac 30 MG/ML Syringe IV (01:47)
[2024-02-22 04:16] LABS: Hematocrit 35.9 % (37-47); Hemoglobin 12.6 g/dL (12.0-15.0); Mean Corp Hgb Conc 35.1 g/dL (32-36); Mean Corpuscular Hgb 31.7 pg (27.0-32.0); Mean Corpuscular Volume 90.4 fL (81-99); Mean Platelet Vol. 12.6 fl (6.2-12.0); Platelet Count 132 K/mm3 (150-450); RBC Distribution Width CV 13.2 % (11.6-14.6); RBC Distribution Width SD 43.2 fl (35.1-43.9); Red Blood Count 3.97 M/mm3 (4.2-5.4); White Blood Count 15.1 K/mm3 (4.4-11.0)
--- NOTE | 2024-02-22 08:02 | PN.OBGYN_ITS ---
Subjective Subjective Patient doing well. Tolerating PO. Ambulating without difficulty. Unable to urinate today and has the complaint of bleeding on side of her incision. Feeding well. Denies chest pain, shortness of breath, calf pain/swelling, fevers, chills, lightheadedness. Objective Data Objective Data Vital Signs: Vital Signs Temp Pulse Resp BP Pulse Ox O2 Del Method 97.7 F L 99 16 121/85 H 99 Room Air 02/22/24 08:00 02/22/24 08:00 02/22/24 08:00 02/22/24 08:00 02/22/24 08:00 02/22/24 08:00 Oxygen Delivery Method Room Air Weight: 181 lb Body Mass Index (BMI) 30.1 Intake & Output: Intake and Output for Last 24 Hours 02/20/24 02/21/24 02/22/24 23:59 23:59 23:59 Intake Total 1270 / 1270 Output Total 900 / 900 Balance 370 / 370 Lab / Micro Data 02/22/24 04:00 Labs: Laboratory Results - last 24 hr 02/21/24 16:50: WBC 13.0 H, RBC 4.45, Hgb 14.1, Hct 40.9, MCV 91.9, MCH 31.7, MCHC 34.5, RDW Std Deviation 44.3 H, RDW Coeff of Jaret 13.2, Plt Count 153, MPV 12.9 H, Immature Gran % (Auto) 0.800, Neut % (Auto) 69.8, Lymph % (Auto) 18.7 L, Mcmullen % (Auto) 8.1, Eos % (Auto) 2.1, Baso % (Auto) 0.5, Absolute Neuts (auto) 9.1 H, Absolute Lymphs (auto) 2.42, Nucleated RBC % 0, Syphilis Total Ab Non- reactive, Blood Type A POSITIVE, Antibody Screen NEGATIVE 02/22/24 04:00: WBC 15.1 H, RBC 3.97 L, Hgb 12.6, Hct 35.9 L, MCV 90.4, MCH 31.7, MCHC 35.1, RDW Std Deviation 43.2, RDW Coeff of Jaret 13.2, Plt Count 132 L, MPV 12.6 H ROS Constitutional Constitutional: Denies chills, fatigue, fever(s), poor appetite or weakness Eyes Eyes: Denies blurry vision, change in vision, seeing flashes or spots in vision ENT HEENT: Denies dizziness, headache(s), loss taste/smell or sore throat Cardiovascular Cardiovascular: Denies chest pain, dizziness, dyspnea, irregular heart rhythm, palpitations or rapid heart rate Respiratory/Chest Respiratory/Chest: Denies chest tightness, cough, dyspnea or breast pain Gastrointestinal Gastrointestinal: Denies abdominal pain, constipation or vomiting Genitourinary Genitourinary: Denies dysuria or flank pain Musculoskeletal Musculoskeletal: Denies difficulty walking, joint pain, limited range of motion or numbness Neurologic Neurologic: Denies abnormal movements, abnormal speech, dizziness, numbness, seizure-like activity or syncope Psychiatric Psychiatric: Denies anxiety, behavioral changes, change in appetite, confusion, depression or suicidal thoughts Physical Exam Const alert, oriented x3 and no apparent distress General Appearance: cooperative and comfortable Resp normal respiratory effort Cardio regular rate GI normal to inspection, nondistended, normoactive bowel sounds GI Narrative: uterus is firm below umbilicus Palpation: soft Rectal Exam: other Other Details: lacy rash around site of ioband drape. Incision is clean under the dressing. no active bleeding seen. Back/Spine no CVA tenderness and thoraco-lumbar ROM normal Extremity normal to inspection, no clubbing, cyanosis or edema, no calf tenderness and no pedal edema Psych mental status grossly normal, thought process normal, cooperative, affect normal, speech normal, activity/motor behavior normal, denies homicidal ideation and denies suicidal ideation Assessment & Plan (1) Status post section: (2) LGA (large for gestational age) fetus: COMMENT: EFW 9 lbs 13 oz (3) Antepartum variable deceleration: (4) Supervision of normal first : COMMENT: PRR, , FELICIANO 02/14/24, girl Jose Andrews (5) : QUALIFIERS: Weeks of gestation: 41 weeks Qualified Code(s): O48.0 - Post-term ; Z3A.41 - 41 weeks gestation of COMMENT: GBS neg, normal anatomy, discussed genetic & carrier testing NIPT low risk PLAN: Plan plan to scan bladder now replace dressing start benadryl for rash.
[2024-02-22] MEDS: DiphenhydrAMINE 25 MG Capsule PO (08:56)
[2024-02-22] MEDS: Prenatal Vits Tablet 1 TABLET PO ×2 (10:08→10:09)
[2024-02-22] MEDS: Senna/Docusate Sodium 1 Tablet PO (10:09)
[2024-02-22] MEDS: Ibuprofen 600 MG Tablet PO (18:39)
== END 2024-02-22 21:35 | disposition home or self-care (01) | DRG 788 ==
PROVIDERS: Admitting Provider Obstetrics & Gynecology; Referring Provider Obstetrics & Gynecology; Visit Provider Obstetrics & Gynecology
DX: O36.63X0 Maternal care for excessive fetal growth, third trimester, not applicable or unspecified (principal); O36.8330 Maternal care for abnormalities of the fetal heart rate or rhythm, third trimester, not applicable or unspecified; O48.0 Post-term pregnancy; Z3A.41 41 weeks gestation of pregnancy; Z37.0 Single live birth
CPT/HCPCS: 59025; 59050; 85025; 85027; 86780; 86850; 86900; 86901; 99221; J7120; G0378; J2405

== ENCOUNTER → 2024-02-21 | Outpatient (CLI) | payer OTHER, SELFPAY ==
--- NOTE | 2024-02-21 09:36 | US_ITS ---
STUDY: SECOND AND THIRD TRIMESTER OBSTETRICAL ULTRASOUND - LIMITED REASON FOR EXAM: Female, 34 years old Growth LMP: May 10, 2023. PRIOR ULTRASOUND: Comparison is made with prior examination dated January 02, 2024. TECHNIQUE: Transabdominal TECHNICAL QUALITY: Adequate. FINDINGS: There is a single intrauterine fetus. The fetus is in a cephalic presentation. There is demonstrated cardiac activity with a heart rate of 150 bpm. There is a normal amniotic fluid volume. The largest amniotic fluid pocket measures 5.6 cm. The amniotic fluid index (HECTOR) is 8.7 cm. Echogenicities are seen within the amniotic fluid. This may represent meconium. The placenta is posterior in location and is not low lying. There are Grade 2 placental changes. BIOMETRY: BPD: 9.9 cm: 40 weeks, 5 days HC: 34.9 cm: 40 weeks, 4 days AC: 39.1 cm: Not available FL: 7.3 cm: 37 weeks, 2 days Age by LMP: 41 weeks, 0 days. FELICIANO by LMP: February 14, 2024. age by current US: 39 weeks, 5 days. FELICIANO by current US: February 23, 2024. Estimated weight: 4456 grams, +/- 668 grams, percentile. US/OB Limited With Biometrics IMPRESSION: Intrauterine gestation with a mean gestational age of 39 weeks and 5 days. Electronically Signed: Albert Stone MD at 10:31 EST ,
== END | disposition home or self-care (01) ==
LOC: US 09:33
PROVIDERS: Referring Provider Advanced Practice Midwife; Visit Provider Advanced Practice Midwife
DX: Z34.93 Encounter for supervision of normal pregnancy, unspecified, third trimester (principal); Z3A.40 40 weeks gestation of pregnancy
CPT/HCPCS: 76816